=== PATIENT | female | born 1945 | race Caucasian/White ===

== ENCOUNTER 2016-06-04 21:19 | Emergency (ER) | payer OTHER, MEDICAID ==
[~2016-06-04] VITALS: Ht 160 cm; Wt 87.5 kg
[~2016-06-04 21:19] MED LIST: AMLO5TAB2 PO; AMOX-291 PO; ASPI81TA14 PO; CLAR500T PO; GABA300C10 PO; GABA600T2 PO; HYDR-3138 PO; HYDR1TAB12 PO; INSU100V8 SQ; LISI40TA PO; METF500T4 PO; METO5TAB2 PO; NAPR500T PO; OMEP-110 PO; ONDA4TAB13 PO; ONDA4TAB7 PO; OXYC5TAB3 PO; SENN1TAB7 PO; TIZA4TAB PO
[2016-06-04 22:16] LABS: PATH.CAST-FLAG NOT PRESENT; SPERM-FLAG NOT PRESENT; SRC-FLAG NOT PRESENT; XTAL-FLAG NOT PRESENT; YLC-FLAG NOT PRESENT
[2016-06-04 22:17] LABS: ICTOTEST NEGATIVE
[2016-06-04] MEDS ORDERED: SODIUM CHLORIDE 0.9% 1,000ML IVBOLUS ONE (23:30)
[2016-06-04] MEDS ORDERED: ONDANSETRON 2MG/ML, 2ML IVPush ONE (23:30)
[2016-06-04] MEDS ORDERED: MORPHINE SULFATE 4 MG/ML, 1ML IVPush PRN (23:30)
[2016-06-04] MEDS ORDERED: MORPHINE SULFATE 4 MG/ML, 1ML ONE (23:43)
[2016-06-04] MEDS ORDERED: ONDANSETRON 2MG/ML, 2ML ONE (23:44)
[2016-06-04 23:52] LABS: HEMOGLOBIN 14.4 g/dL (11.7-16.4)
[2016-06-05 00:01] LABS: BLOOD UREA NITROGEN 17 mg/dL (7-18)
[2016-06-05 00:06] LABS: ASPARTATE AMINO TRANSFERASE 16 U/L (15-37)
[2016-06-05 00:07] LABS: IS PT STATUS REG ER OR PRE ER? YES
[2016-06-05] MEDS ORDERED: METOCLOPRAMIDE 5 MG/ML, 2ML IVPush ONE (00:30)
[2016-06-05] MEDS ORDERED: METOCLOPRAMIDE 5 MG/ML, 2ML ONE (00:31)
[2016-06-05] MEDS ORDERED: LABETALOL 5MG/ML, 20ML IVPush STA (01:35)
[2016-06-05] MEDS ORDERED: LABETALOL 5MG/ML, 20ML ONE (02:02)
[2016-06-05 02:47] VITALS: BP 163/76
== END 2016-06-05 03:12 | disposition home or self-care (01) ==
LOC: ED 23:59
DX: A09 Infectious gastroenteritis and colitis, unspecified (principal); I10 Essential (primary) hypertension
CPT/HCPCS: 36415; 74177; 80053; 81001; 83690; 84484; 85025; 93005; 96374; 96375; 99285; J2405; J2765; J7030

== ENCOUNTER 2016-07-02 12:16 | Emergency (ER) | payer OTHER, MEDICAID ==
[~2016-07-02] VITALS: Ht 160 cm; Wt 85.4 kg
[2016-07-02] MEDS ORDERED: IBUPROFEN 200 MG TABLET ONE (13:38)
[2016-07-02 13:56] VITALS: BP 160/92
[2016-07-02] MEDS ORDERED: IBUPROFEN 200 MG TABLET PO ONE (14:00)
== END 2016-07-02 13:58 | disposition home or self-care (01) ==
LOC: ED 13:52
DX: Z76.0 Encounter for issue of repeat prescription (principal); M54.40 Lumbago with sciatica, unspecified side; G89.29 Other chronic pain; I10 Essential (primary) hypertension; E11.9 Type 2 diabetes mellitus without complications; G62.9 Polyneuropathy, unspecified; Z88.6 Allergy status to analgesic agent; Z98.890 Other specified postprocedural states; Z87.440 Personal history of urinary (tract) infections
CPT/HCPCS: 99283

== ENCOUNTER 2016-07-27 02:25 | Emergency (ER) | payer OTHER, MEDICAID ==
[~2016-07-27] VITALS: Ht 162.6 cm; Wt 91.8 kg
[2016-07-27] MEDS ORDERED: OXYcodone/APAP 5/325MG TABLET PO ONE (05:00)
[2016-07-27] MEDS ORDERED: OXYcodone/APAP 5/325MG TABLET ONE (05:22)
[2016-07-27 07:29] VITALS: BP 175/90
== END 2016-07-27 07:31 | disposition home or self-care (01) ==
LOC: ED 04:38
DX: M79.661 Pain in right lower leg (principal); G89.29 Other chronic pain; E11.9 Type 2 diabetes mellitus without complications; I10 Essential (primary) hypertension; Z88.5 Allergy status to narcotic agent
CPT/HCPCS: 99284

== ENCOUNTER 2016-09-15 02:43 | Emergency (ER) | payer OTHER, MEDICAID ==
[~2016-09-15] VITALS: Ht 160 cm; Wt 89.8 kg
[2016-09-15] MEDS ORDERED: AMLO5TAB2 PO (02:56)
[2016-09-15] MEDS ORDERED: OXYcodone/APAP 10/325MG TABLET ONE (03:52)
[2016-09-15] MEDS ORDERED: OXYcodone/APAP 10/325MG TABLET PO ONE (04:00)
[2016-09-15 04:07] VITALS: BP 166/100
== END 2016-09-15 04:09 | disposition home or self-care (01) ==
LOC: ED 03:20
DX: M79.671 Pain in right foot (principal); M79.672 Pain in left foot; I10 Essential (primary) hypertension; E11.40 Type 2 diabetes mellitus with diabetic neuropathy, unspecified; Z87.891 Personal history of nicotine dependence
CPT/HCPCS: 99283

== ENCOUNTER 2016-11-23 21:35 | Emergency (ER) | payer OTHER, MEDICAID ==
[~2016-11-23] VITALS: Ht 160 cm; Wt 97.0 kg
[~2016-11-23 21:35] MED LIST changes: -HYDR-3138 PO; +HYDR-3237 PO
[2016-11-23 22:39] LABS: HEMATOCRIT 41.3 % (34.6-47.8); HEMOGLOBIN 13.8 g/dL (11.7-16.4); WHITE BLOOD COUNT 7.1 x10^3/uL (3.4-10)
[2016-11-23 22:49] LABS: BLOOD UREA NITROGEN 14 mg/dL (7-18)
[2016-11-23] MEDS ORDERED: LIDOCAINE 1%, 20ML INFIL ONE (23:00)
[2016-11-23] MEDS ORDERED: LIDOCAINE 1%, 20ML ONE (23:40)
[2016-11-24 00:23] VITALS: BP 146/89
== END 2016-11-24 00:24 | disposition home or self-care (01) ==
LOC: ED 22:16
DX: L60.0 Ingrowing nail (principal); I10 Essential (primary) hypertension; E11.9 Type 2 diabetes mellitus without complications; Z87.891 Personal history of nicotine dependence
CPT/HCPCS: 11750; 36415; 80048; 82040; 84550; 85025; 99285

== ENCOUNTER 2017-07-17 06:05 | Emergency (ER) | payer OTHER, MEDICAID ==
[~2017-07-17] VITALS: Ht 160 cm; Wt 80.0 kg
[~2017-07-17 06:05] MED LIST changes: +NAPR-856 PO; -NAPR500T PO
[2017-07-17] MEDS ORDERED: INSU100V8 SQ (06:14)
[2017-07-17] MEDS ORDERED: ATOR40TA78 PO (06:15)
[2017-07-17 06:40] LABS: BASOPHILS # (AUTO) 0.01 x10^3/uL (0-0.1); BASOPHILS % (AUTO) 0 % (0-1); EOSINOPHILS # (AUTO) 0.31 x10^3/uL (0-0.4); EOSINOPHILS % (AUTO) 3 % (1-7); LYMPHOCYTES # (AUTO) 2.64 x10^3/uL (1-3.4); LYMPHOCYTES % (AUTO) 29 % (22-44); MD NO; MEAN CORPUSCULAR VOLUME 90.8 fL (80-100); MEAN PLATELET VOLUME 8.3 fL (7.4-10.4); MONOCYTES # (AUTO) 0.53 x10^3/uL (0.2-0.8); MONOCYTES % (AUTO) 6 % (2-9); NEUTROPHILS % (AUTO) 62 % (42-75); PLATELET COUNT 364 x10^3/uL (130-400); RED BLOOD COUNT 4.31 x10^6/uL (3.82-5.3); RED CELL DISTRIBUTION WIDTH 14.5 % (9.6-15.2)
[2017-07-17 06:52] LABS: ANION GAP 10 mmol/L (5-15); CHLORIDE 108 mmol/L (98-107); CREATININE 1.65 mg/dL (0.55-1.02)
[2017-07-17 08:37] LABS: CLOSTRIDIUM DIFFICILE ANTIGEN NEGATIVE; CLOSTRIDIUM DIFFICILE TOXIN NEGATIVE (Negative)
[2017-07-17] MEDS ORDERED: SODIUM CHLORIDE FLUSH 10ML SYR IVF ONE (09:00)
[2017-07-17] MEDS ORDERED: SODIUM CHLORIDE 0.9% 1,000ML IVBOLUS ONE (09:00)
[2017-07-17 09:05] LABS: MICROSCOPIC INDICATED
[2017-07-17 09:29] LABS: CULTURE INDICATED? YES
[2017-07-17] MEDS ORDERED: ONDANSETRON ODT 4 MG ONE (09:50)
[2017-07-17] MEDS ORDERED: MORPHINE SULFATE 4 MG/ML, 1ML ONE (09:50)
[2017-07-17] MEDS ORDERED: ONDANSETRON ODT 4 MG PO ONE (10:00)
[2017-07-17] MEDS ORDERED: MORPHINE SULFATE 4 MG/ML, 1ML IVPush ONE (10:00)
[2017-07-17 10:15] VITALS: BP 115/80
== END 2017-07-17 11:33 | disposition home or self-care (01) ==
LOC: ED 09:45
DX: S93.491A Sprain of other ligament of right ankle, initial encounter (principal); N30.01 Acute cystitis with hematuria; R19.7 Diarrhea, unspecified; E87.6 Hypokalemia; E11.65 Type 2 diabetes mellitus with hyperglycemia; I10 Essential (primary) hypertension; M19.071 Primary osteoarthritis, right ankle and foot; W01.0XXA Fall on same level from slipping, tripping and stumbling without subsequent striking against object, initial encounter; Y93.89 Activity, other specified; Y92.099 Unspecified place in other non-institutional residence as the place of occurrence of the external cause; Y99.8 Other external cause status
CPT/HCPCS: 29515; 36415; 73590; 73610; 80048; 81001; 83690; 85025; 87086; 87186; 87324; 89055; 96361; 96374; 99285; J7030; Q0162

== ENCOUNTER 2017-10-16 07:56 | Emergency (ER) | payer OTHER, MEDICAID ==
[~2017-10-16] VITALS: Ht 160 cm; Wt 104.6 kg
[~2017-10-16 07:56] MED LIST changes: +ATOR40TA78 PO; -METF500T4 PO; +METF500T5 PO
[2017-10-16 08:02] VITALS: BP 145/65
[2017-10-16] MEDS ORDERED: LIDOCAINE-MPF 2% ,5ML SQ ONE (08:30)
[2017-10-16] MEDS ORDERED: LIDOCAINE-MPF 1%, 2ML ONE (08:35)
[2017-10-16] MEDS ORDERED: BACITRACIN ZINC OINT 500U/GM, 0.9 GM ONE (09:16)
== END 2017-10-16 09:44 | disposition home or self-care (01) ==
LOC: ED 09:35
DX: L60.0 Ingrowing nail (principal); E87.6 Hypokalemia; I10 Essential (primary) hypertension; E11.65 Type 2 diabetes mellitus with hyperglycemia; M19.90 Unspecified osteoarthritis, unspecified site
CPT/HCPCS: 11730; 11740; 11760; 99284

== ENCOUNTER 2017-11-17 11:40 | Observation (INO) | payer OTHER, MEDICAID ==
[~2017-11-17] VITALS: Ht 160 cm; Wt 105.7 kg
[~2017-11-17 11:40] MED LIST changes: +CELE100C PO; +DOCU-131 PO; +POLY17PO5 PO; +TRAM50TA2 PO
[2017-11-17] MEDS ORDERED: ASPI-515 PO (11:59)
[2017-11-17] MEDS ORDERED: LISI-170 PO (11:59)
[2017-11-17] MEDS ORDERED: ATOR40TA PO (11:59)
[2017-11-17] MEDS ORDERED: OLAN5TAB3 PO (11:59)
[2017-11-17] MEDS ORDERED: SODIUM CHLORIDE 0.9% 1,000ML IVBOLUS ONE ×2 (12:00→13:00)
[2017-11-17] MEDS ORDERED: SODIUM CHLORIDE FLUSH 10ML SYR IVF ONE (12:00)
[2017-11-17 12:25] LABS: BASOPHILS # (AUTO) 0.02 x10^3/uL (0-0.1); BASOPHILS % (AUTO) 0 % (0-1); EOSINOPHILS % (AUTO) 2 % (1-7); LYMPHOCYTES # (AUTO) 2.04 x10^3/uL (1-3.4); LYMPHOCYTES % (AUTO) 22 % (22-44); MD NO; MEAN CORPUSCULAR HEMOGLOBIN 30.8 pg (27.0-34.8); MEAN CORPUSCULAR HGB CONC 33.4 g/dL (32.4-35.8); MEAN CORPUSCULAR VOLUME 92.3 fL (80-100); MEAN PLATELET VOLUME 8.4 fL (7.4-10.4); MONOCYTES # (AUTO) 0.56 x10^3/uL (0.2-0.8); MONOCYTES % (AUTO) 6 % (2-9); NEUTROPHILS # (AUTO) 6.55 x10^3/uL (1.8-6.8); NEUTROPHILS % (AUTO) 70 % (42-75); PLATELET COUNT 425 x10^3/uL (130-400); RED BLOOD COUNT 4.11 x10^6/uL (3.82-5.3); RED CELL DISTRIBUTION WIDTH 13.6 % (9.6-15.2)
[2017-11-17 12:29] LABS: ALBUMIN 3.5 g/dL (3.4-5.0); ANION GAP 9 mmol/L (5-15); CALCIUM 8.7 mg/dL (8.5-10.1); CHLORIDE 102 mmol/L (98-107); CREATININE 1.34 mg/dL (0.55-1.02)
[2017-11-17 12:32] LABS: TROPONIN I < 0.015 ng/mL (0.000-0.045)
[2017-11-17 14:16] LABS: MICROSCOPIC INDICATED
[2017-11-17 14:19] LABS: CULTURE INDICATED? YES
[2017-11-17] MEDS ORDERED: ACETAMINOPHEN 325 MG TABLET PO PRN (14:30)
[2017-11-17] MEDS ORDERED: ONDANSETRON ODT 4 MG PO PRN (14:30)
[2017-11-17] MEDS ORDERED: ONDANSETRON 2MG/ML, 2ML IVPush PRN (14:30)
[2017-11-17 14:52] LABS: CLOSTRIDIUM DIFFICILE ANTIGEN NEGATIVE; CLOSTRIDIUM DIFFICILE TOXIN NEGATIVE (Negative)
[2017-11-17] MEDS ORDERED: INSULIN REGULAR 100 UNITS/ML, 3ML VIAL IVPush ONE (15:00)
[2017-11-17] MEDS ORDERED: DEXTROSE 50%, 50ML SYRINGE IVPush ONE (15:00)
[2017-11-17] MEDS ORDERED: CALCIUM GLUCONATE 4.6 MEQ/10 ML IVPush ONE (15:00)
[2017-11-17] MEDS ORDERED: SODIUM BICARB 8.4%, 50ML SYRINGE IVPush ONE (15:00)
[2017-11-17] MEDS ORDERED: CALCIUM GLUCONATE 4.6 MEQ in SODIUM CHLORIDE 0.9% 50 ML IV ONE (15:00)
[2017-11-17] MEDS: SODIUM CHLORIDE 0.9% 1,000 ML IV SCH ×2 (15:10→23:13)
[2017-11-17 15:25] LABS: HEMOGLOBIN A1C 8.2 % (4.2-6.3)
[2017-11-17] MEDS ORDERED: GLUCAGON 1 MG IM PRN (15:30)
[2017-11-17] MEDS ORDERED: DEXTROSE 50%, 50ML SYRINGE IVPush PRN (15:30)
[2017-11-17] MEDS ORDERED: DEXTROSE 4 GM TAB.CHEW PO PRN (15:30)
[2017-11-17] MEDS: GABAPENTIN 300 MG CAPSULE PO SCH ×2 (15:41→20:30)
[2017-11-17] MEDS: HEPARIN 5,000 UNITS/ML, 1ML SQ SCH (15:42)
[2017-11-17] MEDS: INSULIN LISPRO 100 UNITS/ML, PEN SQ-INSULIN SCH ×2 (16:00→20:31)
[2017-11-17 16:02] VITALS: BP 102/68
[2017-11-17] MEDS: INSULIN GLARGINE 100 UNITS/ML, PEN SQ-INSULIN SCH (16:48)
[2017-11-17 17:22] LABS: ANION GAP 8 mmol/L (5-15); CHLORIDE 109 mmol/L (98-107); CREATININE 1.01 mg/dL (0.55-1.02)
[2017-11-17 20:00] VITALS: BP 150/76
[2017-11-17] MEDS ORDERED: ATORVASTATIN 40 MG TABLET PO SCH (21:00)
[2017-11-18] MEDS: HEPARIN 5,000 UNITS/ML, 1ML SQ SCH ×2 (00:23→08:11)
[2017-11-18 02:00] VITALS: BP 129/76
[2017-11-18 05:45] LABS: ALBUMIN 2.9 g/dL (3.4-5.0); ANION GAP 6 mmol/L (5-15); CALCIUM 8.3 mg/dL (8.5-10.1); CHLORIDE 112 mmol/L (98-107)
[2017-11-18 05:47] LABS: BASOPHILS # (AUTO) 0.03 x10^3/uL (0-0.1); BASOPHILS % (AUTO) 0 % (0-1); EOSINOPHILS # (AUTO) 0.31 x10^3/uL (0-0.4); EOSINOPHILS % (AUTO) 4 % (1-7); LYMPHOCYTES # (AUTO) 2.72 x10^3/uL (1-3.4); LYMPHOCYTES % (AUTO) 38 % (22-44); MD NO; MEAN CORPUSCULAR HEMOGLOBIN 31.1 pg (27.0-34.8); MEAN CORPUSCULAR HGB CONC 33.6 g/dL (32.4-35.8); MEAN CORPUSCULAR VOLUME 92.5 fL (80-100); MEAN PLATELET VOLUME 8.4 fL (7.4-10.4); MONOCYTES % (AUTO) 7 % (2-9); NEUTROPHILS # (AUTO) 3.58 x10^3/uL (1.8-6.8); NEUTROPHILS % (AUTO) 50 % (42-75); PLATELET COUNT 350 x10^3/uL (130-400); RED BLOOD COUNT 3.67 x10^6/uL (3.82-5.3); RED CELL DISTRIBUTION WIDTH 13.7 % (9.6-15.2)
[2017-11-18 05:48] LABS: ALANINE AMINOTRANSFERASE 51 U/L (12-78); ALKALINE PHOSPHATASE 62 U/L (45-117); BILIRUBIN,TOTAL 0.4 mg/dL (0.2-1.0); CREATININE 0.95 mg/dL (0.55-1.02); TOTAL PROTEIN 6.2 g/dL (6.4-8.2)
[2017-11-18] MEDS: INSULIN LISPRO 100 UNITS/ML, PEN SQ-INSULIN SCH ×2 (07:00→11:00)
[2017-11-18] MEDS ORDERED: SODIUM BICARB 8.4%, 50ML SYRINGE IVPush ONE (07:00)
[2017-11-18] MEDS ORDERED: CALCIUM GLUCONATE 0.46MEQ/1ML IVPush ONE (07:00)
[2017-11-18] MEDS ORDERED: DEXTROSE 50%, 50ML SYRINGE IVPush ONE (07:00)
[2017-11-18] MEDS: SODIUM CHLORIDE 0.9% 1,000 ML IV SCH (07:00)
[2017-11-18] MEDS ORDERED: INSULIN REGULAR 100 UNITS/ML, 3ML VIAL IVPush ONE (07:00)
[2017-11-18] MEDS ORDERED: CALCIUM GLUCONATE 4.6 MEQ in SODIUM CHLORIDE 0.9% 50 ML IV ONE (07:30)
[2017-11-18 07:59] VITALS: BP 108/75
[2017-11-18] MEDS: GABAPENTIN 300 MG CAPSULE PO SCH (08:13)
[2017-11-18] MEDS ORDERED: OLANZAPINE 5 MG TABLET PO SCH (09:00)
[2017-11-18] MEDS ORDERED: ASPIRIN 81 MG TABLET EC PO SCH (09:00)
[2017-11-18] MEDS: INSULIN GLARGINE 100 UNITS/ML, PEN SQ-INSULIN SCH (10:04)
[2017-11-18 12:16] LABS: ANION GAP 5 mmol/L (5-15); CALCIUM 8.9 mg/dL (8.5-10.1); CHLORIDE 112 mmol/L (98-107); CREATININE 0.97 mg/dL (0.55-1.02)
[2017-11-18 13:45] VITALS: BP 110/82
[2017-11-18 13:47] VITALS: BP 112/86
== END 2017-11-18 17:53 | disposition home or self-care (01) ==
LOC: MERGE 11:40 → ED 13:50 → EDIP 13:51 → INTOOBSV 13:51 → ED 13:53 → 4WST 14:47
PROVIDERS: ADMIT Hospitalist; ATTEND Hospitalist
DX: R11.2 Nausea with vomiting, unspecified (principal); R42 Dizziness and giddiness; R19.7 Diarrhea, unspecified; E87.5 Hyperkalemia; E11.42 Type 2 diabetes mellitus with diabetic polyneuropathy; E11.51 Type 2 diabetes mellitus with diabetic peripheral angiopathy without gangrene; E11.65 Type 2 diabetes mellitus with hyperglycemia; E87.1 Hypo-osmolality and hyponatremia; E78.5 Hyperlipidemia, unspecified; Z79.4 Long term (current) use of insulin; N17.9 Acute kidney failure, unspecified; I10 Essential (primary) hypertension; Z87.891 Personal history of nicotine dependence; I95.9 Hypotension, unspecified
CPT/HCPCS: 36415; 71045; 80048; 80053; 81001; 82040; 82962; 83036; 83735; 84484; 85025; 87086; 87324; 89055; 93005; 96361; 96365; 96372; 96375; 96376; 99285; G0378; J0610; J1644; J1815; J7030

== ENCOUNTER → 2018-01-15 | Outpatient (CLI) | payer MEDICAID, OTHER ==
[~2018-01-15] MED LIST changes: -AMLO5TAB2 PO; +AMLO5TAB7 PO; +ASPI-515 PO; +ATOR40TA PO; +LISI-170 PO; +METF500T17 PO; -METF500T5 PO; +OLAN5TAB3 PO; -SENN1TAB7 PO; +SENN1TAB8 PO
== END | disposition home or self-care (01) ==
LOC: CFH 11:30
PROVIDERS: ATTEND Internal Medicine
DX: Z12.31 Encounter for screening mammogram for malignant neoplasm of breast (principal); Z13.820 Encounter for screening for osteoporosis; M81.0 Age-related osteoporosis without current pathological fracture
CPT/HCPCS: 77080; 77067

== ENCOUNTER 2019-09-23 07:50 | Emergency (ER) | payer BC, MEDICARE ==
[~2019-09-23] VITALS: Ht 160 cm; Wt 105.0 kg
[~2019-09-23 07:50] MED LIST changes: +AMLO-150 PO; -AMLO5TAB7 PO; +CLAR-14 PO; -CLAR500T PO; -GABA600T2 PO; +GABA600T7 PO; -HYDR1TAB12 PO; +HYDR1TAB13 PO; +INSU100V35 SQ-INSULIN; +SENN-177 PO; -SENN1TAB8 PO; -TIZA4TAB PO; +TIZA4TAB2 PO
[2019-09-23 07:52] VITALS: BP 133/55
[2019-09-23] MEDS ORDERED: DIPH,PERTUSS(ACELL),TET VAC/PF 0.5 ML IM-VACC ONE ×2 (08:30→09:37)
[2019-09-23] MEDS ORDERED: NEOSPORIN OINT. PKT 1 PACKET ONE (08:38)
[2019-09-23] MEDS ORDERED: HYDROcodone/APAP 5/325 TABLET PO ONE (09:30)
[2019-09-23] MEDS ORDERED: HYDROcodone/APAP 5/325 TABLET ONE (09:37)
== END 2019-09-23 10:02 | disposition home or self-care (01) ==
LOC: ED 08:54
DX: S43.401A Unspecified sprain of right shoulder joint, initial encounter (principal); S53.401A Unspecified sprain of right elbow, initial encounter; S63.501A Unspecified sprain of right wrist, initial encounter; S40.011A Contusion of right shoulder, initial encounter; S60.211A Contusion of right wrist, initial encounter; W18.30XA Fall on same level, unspecified, initial encounter; Y93.89 Activity, other specified; Y92.009 Unspecified place in unspecified non-institutional (private) residence as the place of occurrence of the external cause; Y99.8 Other external cause status
CPT/HCPCS: 90471; 90715; 99284

== ENCOUNTER 2019-09-26 23:22 | Inpatient (IN) | payer MEDICARE ==
[~2019-09-26] VITALS: Ht 160 cm; Wt 108.1 kg
--- NOTE | 2019-09-26 23:35 | NUR ---
pt BIB [facility] from home c/o S/O SOB x1 day. pt deneis trauma, denies pain. pt is tachypneic, but is speaking full sentences and was able to ambulate to [facility] from [facility]. no family at bedside. [facility] [address]. pt reporst that she had a fall at home 2 days ago and was evaluated here for it. pt has an abrasion to R knee and reports that her R upper arm is sore. no other injuries Rea JOHNSON at [facility]
--- NOTE | 2019-09-26 23:50 | NUR ---
EKG has been to bedside
[2019-09-27 00:16] LABS: BASOPHILS # (AUTO) 0.03 x10^3/uL (0-0.1); BASOPHILS % (AUTO) 0 % (0-1); EOSINOPHILS # (AUTO) 0.49 x10^3/uL (0-0.4); EOSINOPHILS % (AUTO) 5 % (1-7); LYMPHOCYTES # (AUTO) 2.61 x10^3/uL (1-3.4); LYMPHOCYTES % (AUTO) 26 % (22-44); MD NO; MEAN CORPUSCULAR HEMOGLOBIN 30.8 pg (27.0-34.8); MEAN CORPUSCULAR HGB CONC 32.8 g/dL (32.4-35.8); MEAN PLATELET VOLUME 8.3 fL (7.4-10.4); MONOCYTES # (AUTO) 0.63 x10^3/uL (0.2-0.8); MONOCYTES % (AUTO) 6 % (2-9); NEUTROPHILS # (AUTO) 6.44 x10^3/uL (1.8-6.8); NEUTROPHILS % (AUTO) 63 % (42-75); PLATELET COUNT 349 x10^3/uL (130-400); RED BLOOD COUNT 3.61 x10^6/uL (3.82-5.3); RED CELL DISTRIBUTION WIDTH 13.3 % (9.6-15.2)
[2019-09-27 00:29] LABS: ALBUMIN 3.4 g/dL (3.4-5.0); ANION GAP 8 mmol/L (5-15); CHLORIDE 93 mmol/L (98-107)
[2019-09-27 00:34] LABS: ALANINE AMINOTRANSFERASE 36 U/L (12-78); ALKALINE PHOSPHATASE 75 U/L (45-117); BILIRUBIN,TOTAL 0.5 mg/dL (0.2-1.0); CREATININE 0.92 mg/dL (0.55-1.02); TOTAL PROTEIN 7.1 g/dL (6.4-8.2); TROPONIN I < 0.015 ng/mL (0.000-0.045)
[2019-09-27 00:50] LABS: CALCIUM 7.6 mg/dL (8.5-10.1)
[2019-09-27] MEDS ORDERED: DEXTROSE 50%, 50ML SYRINGE IVPush ONE (01:00)
[2019-09-27] MEDS ORDERED: SODIUM CHLORIDE 0.9% 1,000ML IVBOLUS ONE (01:00)
[2019-09-27] MEDS ORDERED: SODIUM BICARB 8.4%, 50ML SYRINGE IVPush ONE (01:00)
[2019-09-27] MEDS ORDERED: FUROSEMIDE 40 MG/4 ML IVPush ONE (01:00)
[2019-09-27] MEDS ORDERED: CALCIUM CHLORIDE 10%, 10ML SYR IVPush ONE (01:00)
[2019-09-27] MEDS ORDERED: SODIUM CHLORIDE FLUSH 10ML SYR IVF ONE (01:00)
[2019-09-27] MEDS ORDERED: INSULIN REGULAR 100 UNITS/ML, 3ML VIAL IVPush ONE (01:00)
--- NOTE | 2019-09-27 01:00 | NUR ---
report to Dru ANDRES for lunch
[2019-09-27] MEDS ORDERED: FUROSEMIDE 40 MG/4 ML ONE (01:02)
[2019-09-27] MEDS ORDERED: CALCIUM CHLORIDE 10%, 10ML SYR ONE (01:02)
[2019-09-27] MEDS ORDERED: DEXTROSE 50%, 50ML SYRINGE ONE (01:02)
[2019-09-27] MEDS ORDERED: SODIUM BICARB 8.4%, 50ML SYRINGE ONE (01:02)
[2019-09-27] MEDS ORDERED: INSULIN SINGLE DOSE, ER ONE (01:03)
[2019-09-27] MEDS ORDERED: ONDANSETRON 2MG/ML, 2ML IVPush ONE (01:30)
[2019-09-27] MEDS ORDERED: HYDROcodone/APAP 5/325 TABLET PO ONE (02:00)
--- NOTE | 2019-09-27 02:16 | NUR ---
pt has leonila ambulated to [facility]
[2019-09-27] MEDS ORDERED: ONDANSETRON 2MG/ML, 2ML ONE (02:17)
[2019-09-27] MEDS ORDERED: SODIUM POLYSTYRENE SULFONATE ORAL SUSP PO ONE (02:30)
--- NOTE | 2019-09-27 02:55 | NUR ---
pt has been ambulated to the BR again. pt has been wearing her shoes to the BR, non-skid socks now applied. ice pack applied to RU arm for pain hospitalist at bedside to eval for admit
--- NOTE | 2019-09-27 03:20 | NUR ---
pt ambulated to BR again. pt moved from room 4 to room 5 to be closer to BR. positioning for comfort. pt reports that nausea has resolved
[2019-09-27] MEDS ORDERED: ACETAMINOPHEN 325 MG TABLET PO PRN (03:30)
[2019-09-27] MEDS ORDERED: ONDANSETRON 2MG/ML, 2ML IVPush PRN ×2 (03:30→08:30)
[2019-09-27] MEDS ORDERED: DOCUSATE 100 MG CAPSULE PO PRN (03:30)
[2019-09-27] MEDS ORDERED: GUAIFENESIN/DM 200-20MG, 10ML UDC PO PRN (03:30)
[2019-09-27] MEDS ORDERED: ASA/APAP/ CAFFEINE TABLET PO PRN (03:30)
[2019-09-27] MEDS ORDERED: hydrALAzine 20 MG/ML, 1ML IVPush PRN (03:30)
[2019-09-27] MEDS ORDERED: HYDROcodone/APAP 5/325 TABLET ONE (03:54)
[2019-09-27] MEDS ORDERED: INSU100V8 SQ (04:01)
--- NOTE | 2019-09-27 04:06 | NUR ---
bed assignment recieved. attempting to call report, RN not ready
[2019-09-27 04:16] LABS: % IRON SATURATION 17 % (20-55); ANION GAP 7 mmol/L (5-15); CALCIUM 8.1 mg/dL (8.5-10.1); CHLORIDE 95 mmol/L (98-107); CREATININE 0.89 mg/dL (0.55-1.02); IRON LEVEL 72 mcg/dL (50-170); TOTAL IRON BINDING CAPACITY 414 mcg/dL (250-450)
--- NOTE | 2019-09-27 04:22 | NUR ---
repot to [facility] ANDRES
--- NOTE | 2019-09-27 04:31 | NUR ---
pt to floor via [place]
[2019-09-27 04:37] VITALS: BP 143/76
[2019-09-27 04:42] LABS: TRANSFERRIN 335 mg/dL (200-360)
[2019-09-27 05:50] LABS: MICROSCOPIC NOT IND
[2019-09-27 06:31] VITALS: BP 131/79
[2019-09-27] MEDS: INSULIN REGULAR 100 UNITS/ML, 3ML VIAL SQ-INSULIN SCH ×4 (07:00→20:22)
[2019-09-27 08:22] LABS: CLOSTRIDIUM DIFFICILE ANTIGEN NEGATIVE; CLOSTRIDIUM DIFFICILE TOXIN NEGATIVE (Negative)
[2019-09-27] MEDS ORDERED: PROMETHAZINE 25 MG/ML, 1ML IM PRN (08:30)
[2019-09-27] MEDS: FAMOTIDINE 20 MG TABLET PO SCH ×2 (09:54→20:21)
[2019-09-27] MEDS: AMLODIPINE 5 MG TABLET PO SCH (09:54)
[2019-09-27] MEDS: GABAPENTIN 300 MG CAPSULE PO SCH ×3 (09:54→20:20)
[2019-09-27] MEDS: metFORMIN 500 MG TABLET PO SCH ×2 (09:54→20:21)
[2019-09-27] MEDS: CYCLOBENZAPRINE 10 MG TABLET PO PRN ×2 (09:57→20:21)
[2019-09-27] MEDS: ENOXAPARIN 40 MG/0.4 ML SQ SCH (09:58)
[2019-09-27] MEDS: HYDROcodone/APAP 5/325 TABLET PO PRN ×4 (09:58→23:42)
[2019-09-27 10:31] LABS: ANION GAP 6 mmol/L (5-15); CALCIUM 8.3 mg/dL (8.5-10.1); CHLORIDE 99 mmol/L (98-107)
[2019-09-27 10:38] LABS: TROPONIN I < 0.015 ng/mL (0.000-0.045)
[2019-09-27] MEDS: INSULIN GLARGINE 100 UNITS/ML, PEN SQ-INSULIN SCH (11:56)
[2019-09-27 12:45] VITALS: BP 120/74
[2019-09-27 13:30] LABS: ANION GAP 7 mmol/L (5-15); CALCIUM 8.2 mg/dL (8.5-10.1); CHLORIDE 101 mmol/L (98-107)
[2019-09-27 13:35] LABS: CREATININE 0.98 mg/dL (0.55-1.02); TROPONIN I < 0.015 ng/mL (0.000-0.045)
[2019-09-27 17:42] LABS: ANION GAP 7 mmol/L (5-15); CALCIUM 8.6 mg/dL (8.5-10.1); CHLORIDE 101 mmol/L (98-107); CREATININE 1.03 mg/dL (0.55-1.02)
[2019-09-27 19:04] VITALS: BP 109/62
[2019-09-27] MEDS: ATORVASTATIN 40 MG TABLET PO SCH (20:21)
[2019-09-27] MEDS: TEMAZEPAM 15 MG CAPSULE PO PRN (20:21)
[2019-09-27 23:44] LABS: ANION GAP 6 mmol/L (5-15); CALCIUM 8.3 mg/dL (8.5-10.1); CHLORIDE 102 mmol/L (98-107); CREATININE 0.92 mg/dL (0.55-1.02)
[2019-09-28 01:07] VITALS: BP 142/80
[2019-09-28 03:27] LABS: BASOPHILS # (AUTO) 0.02 x10^3/uL (0-0.1); BASOPHILS % (AUTO) 0 % (0-1); EOSINOPHILS # (AUTO) 0.42 x10^3/uL (0-0.4); EOSINOPHILS % (AUTO) 6 % (1-7); LYMPHOCYTES # (AUTO) 2.49 x10^3/uL (1-3.4); LYMPHOCYTES % (AUTO) 34 % (22-44); MD NO; MEAN CORPUSCULAR HEMOGLOBIN 30.4 pg (27.0-34.8); MEAN CORPUSCULAR HGB CONC 32.4 g/dL (32.4-35.8); MEAN PLATELET VOLUME 7.9 fL (7.4-10.4); MONOCYTES # (AUTO) 0.63 x10^3/uL (0.2-0.8); MONOCYTES % (AUTO) 9 % (2-9); NEUTROPHILS # (AUTO) 3.69 x10^3/uL (1.8-6.8); NEUTROPHILS % (AUTO) 51 % (42-75); PLATELET COUNT 361 x10^3/uL (130-400); RED BLOOD COUNT 3.58 x10^6/uL (3.82-5.3); RED CELL DISTRIBUTION WIDTH 13.5 % (9.6-15.2)
[2019-09-28 03:28] LABS: ANION GAP 8 mmol/L (5-15); CHLORIDE 102 mmol/L (98-107); CREATININE 0.94 mg/dL (0.55-1.02)
[2019-09-28 07:40] LABS: ANION GAP 6 mmol/L (5-15); CHLORIDE 102 mmol/L (98-107)
[2019-09-28 07:41] LABS: CREATININE 1.03 mg/dL (0.55-1.02)
[2019-09-28] MEDS: FAMOTIDINE 20 MG TABLET PO SCH ×2 (07:54→21:19)
[2019-09-28] MEDS: INSULIN GLARGINE 100 UNITS/ML, PEN SQ-INSULIN SCH (07:54)
[2019-09-28] MEDS: metFORMIN 500 MG TABLET PO SCH ×2 (07:54→21:19)
[2019-09-28] MEDS: INSULIN REGULAR 100 UNITS/ML, 3ML VIAL SQ-INSULIN SCH ×4 (07:54→21:20)
[2019-09-28] MEDS: GABAPENTIN 300 MG CAPSULE PO SCH ×3 (07:55→21:18)
[2019-09-28] MEDS: AMLODIPINE 5 MG TABLET PO SCH (07:55)
[2019-09-28] MEDS: ENOXAPARIN 40 MG/0.4 ML SQ SCH (07:58)
[2019-09-28] MEDS ORDERED: MAGNESIUM SULFATE 3 GM in SODIUM CHLORIDE 0.9% 100 ML IV ONE (08:00)
[2019-09-28] MEDS: HYDROcodone/APAP 5/325 TABLET PO PRN ×3 (08:12→21:19)
[2019-09-28] MEDS: CYCLOBENZAPRINE 10 MG TABLET PO PRN ×2 (08:12→16:19)
[2019-09-28 08:24] VITALS: BP_SYST 122; BP_SYST 90; BP_DIAS 51
[2019-09-28] MEDS ORDERED: FUROSEMIDE 20 MG/2 ML IV ONE (09:00)
[2019-09-28] MEDS: GUAIFENESIN ER 600 MG TABLET PO SCH ×2 (09:07→21:18)
[2019-09-28 10:57] LABS: SODIUM,URINE RANDOM 41 mmol/L
[2019-09-28 17:03] LABS: OSMOLALITY,URINE 215 mOsm/kg (500-850)
[2019-09-28 19:19] VITALS: BP 121/73
[2019-09-28] MEDS: ATORVASTATIN 40 MG TABLET PO SCH (21:19)
[2019-09-29 00:23] VITALS: BP 109/67
[2019-09-29] MEDS: HYDROcodone/APAP 5/325 TABLET PO PRN ×4 (06:02→20:35)
[2019-09-29 06:18] LABS: ANION GAP 6 mmol/L (5-15); CALCIUM 8.5 mg/dL (8.5-10.1); CHLORIDE 99 mmol/L (98-107); CREATININE 1.02 mg/dL (0.55-1.02)
[2019-09-29] MEDS: INSULIN REGULAR 100 UNITS/ML, 3ML VIAL SQ-INSULIN SCH ×4 (07:00→20:37)
[2019-09-29] MEDS: GABAPENTIN 300 MG CAPSULE PO SCH ×3 (08:08→20:35)
[2019-09-29] MEDS: metFORMIN 500 MG TABLET PO SCH ×2 (08:08→20:35)
[2019-09-29] MEDS: GUAIFENESIN ER 600 MG TABLET PO SCH ×2 (08:08→20:36)
[2019-09-29] MEDS: AMLODIPINE 5 MG TABLET PO SCH (08:08)
[2019-09-29] MEDS: FAMOTIDINE 20 MG TABLET PO SCH ×2 (08:08→20:37)
[2019-09-29] MEDS: ENOXAPARIN 40 MG/0.4 ML SQ SCH (08:09)
[2019-09-29] MEDS: INSULIN GLARGINE 100 UNITS/ML, PEN SQ-INSULIN SCH (08:09)
[2019-09-29 08:31] VITALS: BP 97/66
[2019-09-29 13:25] VITALS: BP 115/72
[2019-09-29] MEDS: CYCLOBENZAPRINE 10 MG TABLET PO PRN (16:35)
[2019-09-29 18:50] VITALS: BP 114/75
[2019-09-29] MEDS ORDERED: FAMOTIDINE 40 MG TABLET ONE (20:29)
[2019-09-29] MEDS: ATORVASTATIN 40 MG TABLET PO SCH (20:36)
[2019-09-30] MEDS: HYDROcodone/APAP 5/325 TABLET PO PRN ×5 (01:05→20:06)
[2019-09-30] MEDS: TEMAZEPAM 15 MG CAPSULE PO PRN ×2 (01:05→23:15)
[2019-09-30 01:08] VITALS: BP 105/68
[2019-09-30 04:30] VITALS: BP 104/59
[2019-09-30 06:27] LABS: ANION GAP 5 mmol/L (5-15); CALCIUM 8.4 mg/dL (8.5-10.1); CHLORIDE 97 mmol/L (98-107)
[2019-09-30 06:36] VITALS: BP 92/63
[2019-09-30] MEDS: metFORMIN 500 MG TABLET PO SCH ×2 (08:51→20:05)
[2019-09-30] MEDS: FAMOTIDINE 20 MG TABLET PO SCH ×2 (08:51→20:06)
[2019-09-30] MEDS: GUAIFENESIN ER 600 MG TABLET PO SCH ×2 (08:51→20:05)
[2019-09-30] MEDS: INSULIN GLARGINE 100 UNITS/ML, PEN SQ-INSULIN SCH (08:51)
[2019-09-30] MEDS: GABAPENTIN 300 MG CAPSULE PO SCH ×3 (08:51→20:05)
[2019-09-30] MEDS: ENOXAPARIN 40 MG/0.4 ML SQ SCH (08:51)
[2019-09-30] MEDS: INSULIN REGULAR 100 UNITS/ML, 3ML VIAL SQ-INSULIN SCH ×4 (08:52→20:07)
[2019-09-30] MEDS: CYCLOBENZAPRINE 10 MG TABLET PO PRN ×2 (08:57→17:56)
[2019-09-30] MEDS ORDERED: AMLODIPINE 5 MG TABLET PO SCH (09:00)
[2019-09-30 15:05] VITALS: BP 144/69
[2019-09-30 19:23] VITALS: BP 117/71
[2019-09-30] MEDS ORDERED: FAMOTIDINE 40 MG TABLET ONE (19:55)
[2019-09-30] MEDS: ATORVASTATIN 40 MG TABLET PO SCH (20:05)
[2019-09-30] MEDS: ENOXAPARIN 30 MG/0.3 ML SQ SCH (20:07)
[2019-10-01 01:00] VITALS: BP 125/61
[2019-10-01 05:45] LABS: ANION GAP 4 mmol/L (5-15); CHLORIDE 102 mmol/L (98-107); CREATININE 0.97 mg/dL (0.55-1.02)
[2019-10-01 06:11] LABS: BASOPHILS # (AUTO) 0.04 x10^3/uL (0-0.1); BASOPHILS % (AUTO) 1 % (0-1); EOSINOPHILS # (AUTO) 0.55 x10^3/uL (0-0.4); EOSINOPHILS % (AUTO) 8 % (1-7); LYMPHOCYTES # (AUTO) 2.04 x10^3/uL (1-3.4); LYMPHOCYTES % (AUTO) 31 % (22-44); MD NO; MEAN CORPUSCULAR HEMOGLOBIN 30.7 pg (27.0-34.8); MEAN CORPUSCULAR HGB CONC 32.9 g/dL (32.4-35.8); MEAN PLATELET VOLUME 8.7 fL (7.4-10.4); MONOCYTES # (AUTO) 0.51 x10^3/uL (0.2-0.8); MONOCYTES % (AUTO) 8 % (2-9); NEUTROPHILS # (AUTO) 3.57 x10^3/uL (1.8-6.8); NEUTROPHILS % (AUTO) 53 % (42-75); PLATELET COUNT 351 x10^3/uL (130-400); RED BLOOD COUNT 3.33 x10^6/uL (3.82-5.3); RED CELL DISTRIBUTION WIDTH 14.2 % (9.6-15.2)
[2019-10-01 06:42] VITALS: BP 106/71
[2019-10-01] MEDS: INSULIN REGULAR 100 UNITS/ML, 3ML VIAL SQ-INSULIN SCH ×4 (07:00→20:13)
[2019-10-01] MEDS ORDERED: FAMOTIDINE 40 MG TABLET ONE ×2 (08:07→20:08)
[2019-10-01] MEDS: ENOXAPARIN 30 MG/0.3 ML SQ SCH ×2 (08:31→20:12)
[2019-10-01] MEDS: GUAIFENESIN ER 600 MG TABLET PO SCH ×2 (08:32→20:12)
[2019-10-01] MEDS: FAMOTIDINE 20 MG TABLET PO SCH ×2 (08:32→20:13)
[2019-10-01] MEDS: GABAPENTIN 300 MG CAPSULE PO SCH ×3 (08:35→20:11)
[2019-10-01] MEDS: metFORMIN 500 MG TABLET PO SCH ×2 (08:35→20:12)
[2019-10-01] MEDS: INSULIN GLARGINE 100 UNITS/ML, PEN SQ-INSULIN SCH (08:52)
[2019-10-01] MEDS: HYDROcodone/APAP 5/325 TABLET PO PRN ×2 (11:40→18:16)
[2019-10-01 13:33] VITALS: BP 111/73
[2019-10-01] MEDS: HYDROCORTISONE 5 MG TABLET PO SCH (16:38)
[2019-10-01 18:47] VITALS: BP 157/80
[2019-10-01] MEDS: ATORVASTATIN 40 MG TABLET PO SCH (20:11)
[2019-10-02 00:08] VITALS: BP 132/73
[2019-10-02] MEDS: HYDROcodone/APAP 5/325 TABLET PO PRN ×3 (02:51→11:40)
[2019-10-02 05:29] LABS: ANION GAP 6 mmol/L (5-15); CALCIUM 9.1 mg/dL (8.5-10.1); CHLORIDE 105 mmol/L (98-107)
[2019-10-02 05:30] LABS: CREATININE 0.81 mg/dL (0.55-1.02)
[2019-10-02 06:47] VITALS: BP 121/73
[2019-10-02] MEDS: INSULIN REGULAR 100 UNITS/ML, 3ML VIAL SQ-INSULIN SCH ×2 (07:00→11:00)
[2019-10-02] MEDS ORDERED: FAMOTIDINE 40 MG TABLET ONE (07:48)
[2019-10-02] MEDS: GABAPENTIN 300 MG CAPSULE PO SCH (07:51)
[2019-10-02] MEDS: ENOXAPARIN 30 MG/0.3 ML SQ SCH (07:51)
[2019-10-02] MEDS: GUAIFENESIN ER 600 MG TABLET PO SCH (07:51)
[2019-10-02] MEDS: INSULIN GLARGINE 100 UNITS/ML, PEN SQ-INSULIN SCH (07:52)
[2019-10-02] MEDS: HYDROCORTISONE 5 MG TABLET PO SCH (07:52)
[2019-10-02] MEDS: FAMOTIDINE 20 MG TABLET PO SCH (07:52)
[2019-10-02] MEDS: metFORMIN 500 MG TABLET PO SCH (08:49)
[2019-10-02] MEDS ORDERED: HYDR-3237 PO (11:09)
[2019-10-02] MEDS ORDERED: HYDR5TAB PO (11:09)
[2019-10-02] MEDS ORDERED: CYCL-259 PO (11:09)
[2019-10-02] MEDS: CYCLOBENZAPRINE 10 MG TABLET PO PRN (11:40)
[2019-10-02 12:36] VITALS: BP 144/79
[2019-10-02] MEDS ORDERED: metFORMIN 500 MG TABLET PO SCH (17:00)
[2019-10-02] MEDS ORDERED: FAMOTIDINE 20 MG TABLET PO SCH (21:00)
== END 2019-10-02 14:35 | disposition home or self-care (01) | DRG 644 ==
LOC: ED 09-27 01:21 → EDIP 09-27 03:52 → 4WST 09-27 04:35 → DCLOUNGE 10-02 14:25
PROVIDERS: ADMIT Internal Medicine; ATTEND Hospitalist
DX: E27.40 Unspecified adrenocortical insufficiency (principal); E87.1 Hypo-osmolality and hyponatremia; Z68.41 Body mass index [BMI] 40.0-44.9, adult; E87.5 Hyperkalemia; I50.9 Heart failure, unspecified; D64.9 Anemia, unspecified; D72.829 Elevated white blood cell count, unspecified; E11.40 Type 2 diabetes mellitus with diabetic neuropathy, unspecified; E66.01 Morbid (severe) obesity due to excess calories; I11.0 Hypertensive heart disease with heart failure; E87.8 Other disorders of electrolyte and fluid balance, not elsewhere classified; E78.5 Hyperlipidemia, unspecified; I95.1 Orthostatic hypotension; E11.65 Type 2 diabetes mellitus with hyperglycemia; W22.09XA Striking against other stationary object, initial encounter; Z87.891 Personal history of nicotine dependence; Z88.5 Allergy status to narcotic agent; Z79.899 Other long term (current) drug therapy; Z79.4 Long term (current) use of insulin; Z83.3 Family history of diabetes mellitus
CPT/HCPCS: 36415; 71045; 80048; 80053; 81003; 82088; 82533; 82607; 82728; 82962; 83036; 83540; 83550; 83735; 83880; 83930; 83935; 84100; 84244; 84300; 84443; 84466; 84484; 85025; 87324; 93005; 93306; 96361; 96374; 96375; G0378; J1650; J1815; J1940; J2405; J2550; J3475; J7030